=== PATIENT | male | born 1980 | race Caucasian/White ===

== ENCOUNTER 2017-01-18 15:42 | Emergency (ER) | payer BC ==
[~2017-01-18] VITALS: Ht 200.7 cm; Wt 152.4 kg
[2017-01-19 02:35] LABS: Basophils # (auto) 0 uL; Basophils % (auto) 0.5 % (0.0-2.0); CONDITION Y; Eosinophils # (auto) 0 uL; Eosinophils % (auto) 0.2 % (0.0-7.0); Hematocrit 47.1 % (41.0-53.0); Hemoglobin 16.3 g/dL (13.5-17.5); Lymphocytes # (auto) 2.4 uL; Lymphocytes % (auto) 24.7 % (10.0-50.0); Mean Corpuscular Hemoglobin 31.6 pg (28.0-32.0); Mean Corpuscular Hgb Conc. 34.7 g/dL (32.0-36.0); Mean Corpuscular Volume 91.1 fL (80.0-100.0); Mean Platelet Volume 8.5 fL (7.4-10.4); Monocytes # (auto) 0.9 uL; Monocytes % (auto) 9.2 % (0.0-12.0); Neutrophils # (auto) 6.5 uL; Neutrophils % (auto) 65.4 % (37.0-80.0); Platelet Count (auto) 277 10^3/uL (140-450); White Blood Cell 9.9 10^3/uL (4.4-10.8)
[2017-01-19 02:53] LABS: BUN/Creatinine Ratio 9.7; Calcium 8.9 mg/dL (8.5-10.1); Potassium 3.5 mmol/L (3.5-5.1)
[2017-01-19 05:15] LABS: Urine Bilirubin Negative (Negative); Urine Blood Negative /uL (Negative); Urine Color Yellow (Yellow); Urine Glucose Normal (Normal); Urine Mucus FEW (None Seen); Urine Nitrite Negative (Negative); Urine RBC <1 /hpf (0 - 3); Urine Urobilinogen Normal (Negative); Urine pH 5.5 (5.0-8.0)
[2017-01-19 05:16] LABS: Urine Ketone 2+ (Negative)
[2017-01-19 08:34] VITALS: BP 153/93
== END 2017-01-19 09:44 | disposition home or self-care (01) ==
LOC: ER 15:49
DX: K59.00 Constipation, unspecified (principal); K92.1 Melena; Z88.1 Allergy status to other antibiotic agents
CPT/HCPCS: 36415; 74176; 80048; 81001; 82150; 83690; 85025